=== PATIENT | male | born 1990 | race Hispanic/Latino ===

== ENCOUNTER 2022-06-14 10:32 | Emergency (ER) | payer SELFPAY ==
[~2022-06-14] VITALS: Ht 165.1 cm; Wt 83.9 kg
[2022-06-14] MEDS ORDERED: ZYRTEC10 MG PO (10:49)
== END 2022-06-14 11:10 | disposition home or self-care (01) ==
LOC: ER 10:43
DX: R21 Rash and other nonspecific skin eruption (principal); F17.210 Nicotine dependence, cigarettes, uncomplicated
CPT/HCPCS: 99282